=== PATIENT | female | born 1960 | race Asian ===

== ENCOUNTER 2018-09-23 09:46 | Emergency (ER) | payer MEDICAID ==
[~2018-09-23] VITALS: Ht 162.6 cm; Wt 50.8 kg
--- NOTE | 2018-09-23 09:46 | NUR ---
Patient BIBA ACLS, transferred to bed 10. RN evaluating patient at bedside.
[2018-09-23 10:01] VITALS: BP 160/88
--- NOTE | 2018-09-23 10:16 | NUR ---
PT BIBA FOR LACERATION TO HEAD S/P SEIZURE WITH FALL AT HOME. SEIZURE WAS WITNESSED BY FAMILY BUT DURATION OF SEIZURE UNKNOWN. PT SPEAKS ONLY YORUBA, OCCITAN LIMITED. LACERATION IS 2CM IN LENGTH, BLEEDIND IS CONTROLED, HEMATOMA PRESENT. PT IS RESPONDING APPROPRIATELY; COMPLAINS OF HEAD PAIN; 8/10. SEIZURE PRECAUTIONS IMPLEMENTED.
--- NOTE | 2018-09-23 10:19 | NUR ---
CALLED EMERGENCY CONTACT, JOSEPH. JOSEPH IS PT BROTHER. HE STATED HE IS ON HIS WAY HERE NOW.
--- NOTE | 2018-09-23 10:42 | NUR ---
Patient taken to CT scan via gurney by [email or web address].
--- NOTE | 2018-09-23 10:50 | NUR ---
BROTHER JOSEPH AT BEDSIDE WITH PT MOTHER.
--- NOTE | 2018-09-23 10:50 | NUR ---
Patient returned from CT scan. RN re-evaluating patient at bedside.
[2018-09-23 10:57] LABS: ANION GAP 8.2 (8-16); CARBON DIOXIDE 29.4 mmol/L (21-32); CREATININE 0.6 mg/dL (0.6-1.3); POTASSIUM 3.6 mmol/L (3.5-5.1)
--- NOTE | 2018-09-23 11:11 | NUR ---
Dr. Garcia evaluating patient at bedside.
[2018-09-23] MEDS ORDERED: BACITRACIN OINT 500 UNITS/GM PKT TP ONE (11:20)
[2018-09-23 11:41] LABS: BASOPHILS % (AUTO) 0.7 % (0.0-2.0); EOSINOPHILS % (AUTO) 0.3 % (0.0-4.0); HEMATOCRIT 37.8 % (36-48); HEMOGLOBIN 12.6 g/dL (12.0-16.0); LYMPHOCYTES # (AUTO) 0.8 K/uL (2.5-16.5); LYMPHOCYTES % (AUTO) 22.3 % (20.5-51.1); MEAN CORPUSCULAR HEMOGLOBIN 30 pg (27-31); MEAN CORPUSCULAR HGB CONC 33 g/dL (33-37); MEAN CORPUSCULAR VOLUME 89.7 fL (80-94); MONOCYTES # (AUTO) 0.2 K/uL (0.8-1.0); MONOCYTES % (AUTO) 5.9 % (1.7-9.3); NEUTROPHILS # (AUTO) 2.5 K/uL (1.8-7.7); NEUTROPHILS % (AUTO) 70.8 % (42.2-75.2); PLATELET COUNT (AUTO) 214 K/uL (140-450); RED BLOOD CELL COUNT(AUTO) 4.21 MIL/uL (4.20-5.40); RED CELL DISTRIBUTION WIDTH 13.2 % (11.6-13.7); WHITE BLOOD COUNT (AUTO) 3.6 K/uL (4.8-10.8)
[2018-09-23 12:04] VITALS: BP 151/80
--- NOTE | 2018-09-23 12:06 | NUR ---
Patient discharged with v/s stable. Written and verbal after care instructions given and explained. Patient verbalized understanding. Ambulatory with steady gait. All questions addressed prior to discharge. Advised to follow up with PMD.
== END 2018-09-23 12:06 | disposition home or self-care (01) ==
LOC: MED 09:46
DX: S01.01XA Laceration without foreign body of scalp, initial encounter (principal); R56.9 Unspecified convulsions; W19.XXXA Unspecified fall, initial encounter; Y93.89 Activity, other specified; Y92.89 Other specified places as the place of occurrence of the external cause; Y99.8 Other external cause status
CPT/HCPCS: 12001; 36415; 70450; 80048; 81002; 85025; 99284

== ENCOUNTER 2018-09-30 16:31 | Emergency (ER) | payer MEDICAID ==
[~2018-09-30] VITALS: Ht 154.9 cm; Wt 51.3 kg
[2018-09-30 16:48] VITALS: BP 172/100
--- NOTE | 2018-09-30 16:50 | NUR ---
PT RETURNED TO LOBBY IN STABLE CONDITION
--- NOTE | 2018-09-30 17:01 | NUR ---
PT AMBULATED TO CHAIR A.
--- NOTE | 2018-09-30 17:27 | NUR ---
REMOVED 3 RASTA, NO WOUND DEHISCENCE
[2018-09-30 17:53] VITALS: BP 157/82
== END 2018-09-30 17:51 | disposition home or self-care (01) ==
LOC: MED 16:31
DX: S01.01XD Laceration without foreign body of scalp, subsequent encounter (principal); X58.XXXD Exposure to other specified factors, subsequent encounter
CPT/HCPCS: 99283

== ENCOUNTER 2019-03-03 19:32 | Emergency (ER) | payer MEDICAID, OTHER ==
[~2019-03-03] VITALS: Ht 152.4 cm; Wt 63.5 kg
[2019-03-03 20:15] VITALS: BP 190/100
--- NOTE | 2019-03-03 20:28 | NUR ---
PT AMBUALTED TO BED 7.
--- NOTE | 2019-03-03 20:32 | NUR ---
PT RETURN FROM XRAY TO BED 7
--- NOTE | 2019-03-03 20:36 | NUR ---
Dr. Stern examining patient.
--- NOTE | 2019-03-03 20:39 | NUR ---
58 Y/O FEMALE PRESENTS TO ED C/O OF LEFT ARM ABRASION AND LACERATION. PT STATES RIDING HER BACK TO SCHOOL AND FALLING. PT DENIES ANY HEAD TRAUMA. BILAT STRONG RADIAL PULSES. FULL ROM ON ALL EXTREMITIES. DENIES ANY TINGLING SENSATION ON EXTREMITIES. CAP REFILL <3 SECS. PT VSS. ERMD AWARE. WILL CONTINUE TO MONITOR.
[2019-03-03] MEDS ORDERED: LIDOCAINE/EPI 1% 1:100000 20 ML VIAL INJ ONE (20:50)
[2019-03-03] MEDS ORDERED: NEOMYCIN/POLYMYXIN/BACITRACIN 0.9 GM/1 PKT TP ONE (20:50)
--- NOTE | 2019-03-03 21:56 | NUR ---
NEOSPORIN WAS PLACED ON PTS WOUND. NON ADHESEVE GAUZE PLACED TO COVER WOUND.
[2019-03-03 22:20] VITALS: BP 137/98
--- NOTE | 2019-03-03 22:22 | NUR ---
DISCHARGE PAPERS GIVEN TO PT. PROVIDED WITH NON-ADHESIVE GUAZE AND TAPE. INSTRUCTED ON POST CARE, TO F/U WITH PCP AND WHEN TO RETURN TO ER. PT VERBALLIZED UNDERSTANDING OF DC INSTRUCTIONS. ALL QUESTIONS ANSWERED.
== END 2019-03-03 22:22 | disposition home or self-care (01) ==
LOC: MED 19:32
DX: S51.012A Laceration without foreign body of left elbow, initial encounter (principal); I10 Essential (primary) hypertension; Z86.69 Personal history of other diseases of the nervous system and sense organs; V28.0XXA Motorcycle driver injured in noncollision transport accident in nontraffic accident, initial encounter; Y93.89 Activity, other specified; Y92.218 Other school as the place of occurrence of the external cause; Y99.8 Other external cause status
CPT/HCPCS: 12001; 73080; 90471; 90715; 99283; J2001; Q0092

== ENCOUNTER 2019-03-10 08:51 | Emergency (ER) | payer OTHER ==
[~2019-03-10] VITALS: Ht 157.5 cm; Wt 51.3 kg
[2019-03-10 09:07] VITALS: BP 145/89
[2019-03-10 10:38] VITALS: BP 141/82
== END 2019-03-10 10:38 | disposition home or self-care (01) ==
LOC: MED 08:51
DX: S41.112D Laceration without foreign body of left upper arm, subsequent encounter (principal); I10 Essential (primary) hypertension; X58.XXXD Exposure to other specified factors, subsequent encounter
CPT/HCPCS: 99281

== ENCOUNTER 2019-06-19 14:40 | Emergency (ER) | payer OTHER ==
[~2019-06-19] VITALS: Ht 156.2 cm; Wt 52.2 kg
[2019-06-19 14:47] VITALS: BP 154/94
--- NOTE | 2019-06-19 15:42 | NUR ---
Patient ambulated to chair C. RN evaluating patient.
--- NOTE | 2019-06-19 15:45 | NUR ---
CAME IN WITH C/O LEFT THUMB PAIN FOR 3 DAYS.SHE DOESNT WHAT HAPPENED.
--- NOTE | 2019-06-19 15:51 | NUR ---
SEEN AND EXAMINED BY JACQUI WITH ORDERS AND CARRIED OUT.
--- NOTE | 2019-06-19 16:22 | NUR ---
RESULT BACK AND NOTED BY ERMD AND FOR D/C
[2019-06-19 16:26] VITALS: BP 130/90
--- NOTE | 2019-06-19 16:26 | NUR ---
Patient discharged with v/s stable. Written and verbal after care instructions given and explained. Patient alert, oriented and verbalized understanding of instructions. Ambulatory with steady gait. All questions addressed prior to discharge. ID band removed. Patient advised to follow up with PMD. Rx of NAPROXEN 500MG, BACTRIM DS 800MG-160 MG given. Patient educated on indication of medication including possible reaction and side effects. Opportunity to ask questions provided and answered.
== END 2019-06-19 16:26 | disposition home or self-care (01) ==
LOC: MED 14:40
DX: L03.012 Cellulitis of left finger (principal); I10 Essential (primary) hypertension
CPT/HCPCS: 73130; 99283